=== PATIENT | male | born 1955 | race Caucasian/White ===

== ENCOUNTER 2018-07-28 11:42 | Observation (INO) | payer OTHER ==
[~2018-07-28] VITALS: Ht 172.7 cm; Wt 102.2 kg
[~2018-07-28 11:42] MED LIST: PANT-47 PO
[2018-07-28 12:18] LABS: BASOPHILS % (AUTO) 0.4 % (0-1); EOSINOPHILS # (AUTO) 0.2 X10'3 (0-0.9); EOSINOPHILS % (AUTO) 2.1 % (0-6); HEMATOCRIT 48.5 % (42.0-52.0); HEMOGLOBIN 16.5 g/dl (14.0-17.9); LYMPHOCYTES # (AUTO) 2.5 X10'3 (1.1-4.8); LYMPHOCYTES % (AUTO) 29.3 % (21-51); MEAN CORPUSCULAR HEMOGLOBIN 31.9 PG (27.0-31.0); MEAN CORPUSCULAR HGB CONC 34.2 g/dL (33.0-36.5); MEAN CORPUSCULAR VOLUME 93.3 FL (78-98); MEAN PLATELET VOLUME 8.1 FL (7.4-10.4); MONOCYTES # (AUTO) 0.6 X10'3 (0-0.9); MONOCYTES % (AUTO) 7.2 % (2-12); NEUTROPHILS # (AUTO) 5.2 X10'3 (1.8-7.7); PLATELET COUNT 229 X10'3 (140-440); RED CELL DISTRIBUTION WIDTH 13.1 % (11.5-14.5); WHITE BLOOD COUNT 8.6 X10'3 (4.5-11.0)
[2018-07-28 12:32] LABS: PARTIAL THROMBOPLASTIN TIME 25 SECONDS (22-32); PROTHROMBIN TIME 10.4 SECONDS (9.0-12.0)
[2018-07-28 12:34] LABS: ALANINE AMINOTRANSFERASE 33 U/L (12-78); ALBUMIN/GLOBULIN RATIO 1.1 (1.1-1.5); ALKALINE PHOSPHATASE 86 IU/L (46-116); ANION GAP 11 (8-16); ASPARTATE AMINO TRANSFERASE 17 U/L (10-37); BILIRUBIN,TOTAL 0.5 MG/DL (0.1-1.0); BLOOD UREA NITROGEN 14 MG/DL (7-18); BUN/CREATININE RATIO 16.1 (5.4-32.0); CHLORIDE 103 MMOL/L (99-107); CREATININE 0.87 MG/DL (0.60-1.10); GLUCOSE 186 MG/DL (70-104); POTASSIUM 3.9 MMOL/L (3.5-5.1); SODIUM 139 MMOL/L (135-145); TOTAL CARBON DIOXIDE 24.9 MMOL/L (24-32); TOTAL PROTEIN 7.5 G/DL (6.4-8.2); eGFR 90 ML/MIN
[2018-07-28] MEDS ORDERED: nitroGLYCERIN 0.4mg/hour patch TD ONE ×2 (12:40→13:00)
[2018-07-28] MEDS ORDERED: normal saline 1000ML IV soln IVB ONE (12:40)
[2018-07-28] MEDS ORDERED: aspirin 81mg tab.chew PO ONE (12:40)
[2018-07-28] MEDS ORDERED: ondansetron/PF 4mg/2ml inj IV PRN (13:00)
[2018-07-28] MEDS ORDERED: mag hydrox/Alum hydrox/simeth 30ml oral suspension PO PRN (13:00)
[2018-07-28] MEDS ORDERED: magnesium hydroxide 30ml (MOM) UD suspension PO PRN (13:00)
[2018-07-28] MEDS ORDERED: morphine 4 MG/ML inj SYRINge IV PRN ×2 (13:00)
[2018-07-28] MEDS ORDERED: NO HOME MEDS (13:25)
[2018-07-28] MEDS: normal saline 1000ml 1,000 ML IV SCH ×2 (13:43→22:56)
--- NOTE | 2018-07-28 13:52 | NUR ---
Patient resting comfortable in bed with warm blanket and lights dimmed. Patient denies any pain at this time. Patient awaiting in patient room assignment.
[2018-07-28 15:00] VITALS: BP 100/49
[2018-07-28] MEDS ORDERED: nitroGLYCERIN 0.4mg SUBLingual tab SL PRN (15:50)
[2018-07-28] MEDS ORDERED: metoprolol tartrate 1mg/ml inj IV PRN (15:50)
[2018-07-28] MEDS ORDERED: regadenoson 0.4mg/5ml syringe IV ONE (15:50)
[2018-07-28] MEDS ORDERED: aminophylline 250mg/10ml inj. IV PRN (15:50)
--- NOTE | 2018-07-28 16:11 | NUR ---
PAGER ID: [phone] MESSAGE: [phone]. Can I add a nicotine patch for this pt.? Orlin KEENE [phone]
[2018-07-28 16:55] LABS: HEMOGLOBIN A1C 7.3 % (4.5-6.2)
[2018-07-28] MEDS ORDERED: dextrose ORAL solution 15 GM/59 ML bottle PO PRN ×2 (17:05)
[2018-07-28] MEDS ORDERED: insulin Lispro (HumaLOG) vial - multi-dose SQ SCH (17:05)
[2018-07-28] MEDS ORDERED: glucagon, human recombinant 1mg kit SUBCUT PRN (17:05)
[2018-07-28] MEDS ORDERED: dextrose 50%-water 50ml dispensing syringe IV PRN ×2 (17:05)
[2018-07-28] MEDS: nicotine 21mg patch - 24 hr TD SCH (17:18)
[2018-07-28 18:00] VITALS: BP 106/52
--- NOTE | 2018-07-28 18:00 | NUR ---
Patient in room MED 314. I have received report from JASSI Ordaz and had the opportunity to ask questions and assume patient care.
--- NOTE | 2018-07-28 18:16 | NUR ---
Problems reprioritized. Patient report given, questions answered & plan of care reviewed with Marisabel KEENE.
[2018-07-28] MEDS: carVEDilol 3.125mg tablet PO SCH (19:56)
[2018-07-28] MEDS: heparin, porcine 5000 units/ml vial SQ SCH (19:57)
[2018-07-28] MEDS: acetaminophen 325mg tablet PO PRN (20:00)
[2018-07-28] MEDS: insulin glargine (Lantus) pen - multi-dose SQ SCH (21:00)
--- NOTE | 2018-07-28 21:22 | NUR ---
Patient was started on hyperglycemic protocol after it is noted that A1C is 7.3. Patient 1700 blood glucose is 224 and was covered for a correctional dose and nutritional dose of Humulog and given 8 units of Insulin at approximately 2000 hrs and by 2100 his blood glucose was at 72. This patient just prior to 2100 blood glucose check began to complain of nausea and a thickness or swelling in his neck. He also c/o lower back pain that radiated around to upper abdomen of the left side. No 578EKG changes noted, BP is a low at 104/46, but this is repeated after repositioning BP cuff and it read 105/57 (73). Patient was moved to a chair at bedside and within a few minutes reported that the symptoms above began to go away. Provided juice and will repeat accucheck within the next hour (0) and not administer the Lantus dose scheduled, continue to monitor patient. Discussed with Charge nurse and both of us in agreement to hold the Lantus this shift.
[2018-07-28 22:00] VITALS: BP 114/59
[2018-07-29] VITALS (14 sets, daily range): BP systolic 97–145; BP diastolic 49–88
[2018-07-29] MEDS: acetaminophen 325mg tablet PO PRN (02:15)
[2018-07-29 05:44] LABS: BASOPHILS % (AUTO) 0.2 % (0-1); EOSINOPHILS # (AUTO) 0.2 X10'3 (0-0.9); HEMATOCRIT 39.8 % (42.0-52.0); HEMOGLOBIN 13.9 g/dl (14.0-17.9); LYMPHOCYTES # (AUTO) 2.5 X10'3 (1.1-4.8); LYMPHOCYTES % (AUTO) 22.6 % (21-51); MEAN CORPUSCULAR HEMOGLOBIN 32.3 PG (27.0-31.0); MEAN CORPUSCULAR HGB CONC 34.9 g/dL (33.0-36.5); MEAN CORPUSCULAR VOLUME 92.6 FL (78-98); MEAN PLATELET VOLUME 8.2 FL (7.4-10.4); MONOCYTES # (AUTO) 0.8 X10'3 (0-0.9); MONOCYTES % (AUTO) 7.1 % (2-12); NEUTROPHILS # (AUTO) 7.6 X10'3 (1.8-7.7); NEUTROPHILS % (AUTO) 68.1 % (42-75); PLATELET COUNT 205 X10'3 (140-440); RED CELL DISTRIBUTION WIDTH 12.7 % (11.5-14.5); WHITE BLOOD COUNT 11.2 X10'3 (4.5-11.0)
[2018-07-29 05:50] LABS: ALBUMIN 3.2 G/DL (3.4-5.0); ANION GAP 8 (8-16); BLOOD UREA NITROGEN 15 MG/DL (7-18); BUN/CREATININE RATIO 16.5 (5.4-32.0); CALCIUM 8.3 MG/DL (8.5-10.1); CHLORIDE 105 MMOL/L (99-107); CREATININE 0.91 MG/DL (0.60-1.10); GLUCOSE 129 MG/DL (70-104); SODIUM 139 MMOL/L (135-145); eGFR 85 ML/MIN
--- NOTE | 2018-07-29 06:00 | NUR ---
Problems reprioritized. Patient report given, questions answered & plan of care reviewed with Art, RN.
[2018-07-29] MEDS: heparin, porcine 5000 units/ml vial SQ SCH ×2 (07:27→21:57)
[2018-07-29] MEDS: nicotine 21mg patch - 24 hr TD SCH (07:28)
[2018-07-29] MEDS: normal saline 1000ml 1,000 ML IV SCH ×2 (08:56→18:56)
[2018-07-29] MEDS ORDERED: aminophylline inj. 10 ML IV ONE (09:27)
[2018-07-29] MEDS ORDERED: regadenoson 0.4mg/5ml syringe IV ONE (09:27)
[2018-07-29] MEDS: carVEDilol 3.125mg tablet PO SCH (11:15)
[2018-07-29] MEDS: atorvastatin 20mg tablet PO SCH (11:15)
[2018-07-29] MEDS: aspirin 81mg tablet.DR PO SCH (11:15)
[2018-07-29 13:28] LABS: CHOL/HDL RATIO 5.1 (0.00-4.99); CHOLESTEROL 158 MG/DL (0-200); HDL CHOLESTEROL 31 MG/DL (35-60); LDL CHOLESTEROL 110 MG/DL (50-100); TRIGLYCERIDES 125 MG/DL (20-135)
--- NOTE | 2018-07-29 13:56 | NUR ---
Pt being prepped for heart cath. Consent will be obtained.
--- NOTE | 2018-07-29 14:38 | NUR ---
DM Consult: Pt A1C 7.3. Pt is newly diagnosed w/ DM. Met pt at bedside gave written and verbal DM education. Informed pt of DM education class and left RD contact info for further questions. At this time pt has no further questions. Will continue to monitor. Addendum: 07/29/18 at [address] Amended: Links added. Addendum: 07/29/18 at [address] I have reviewed and agree with note by Aircraft Pilot. Nany Montana RD
[2018-07-29] MEDS ORDERED: LIDOcaine 1% (10mg/ml)w/preservative injection 20ml MDV ONE (16:10)
[2018-07-29] MEDS ORDERED: iohexol 350MG/ML 100ml bottle IV ONE (16:10)
--- NOTE | 2018-07-29 16:18 | NUR ---
Pt to labor and employment paralegal
[2018-07-29] MEDS ORDERED: fentaNYL/PF 50MCG/1 ML 2ML syringe ONE (16:21)
[2018-07-29] MEDS ORDERED: midazolam 2 mg/2 ml injection ONE ×2 (16:21→16:26)
[2018-07-29] MEDS: insulin glargine (Lantus) pen - multi-dose SQ SCH (21:00)
[2018-07-29] MEDS: carvedilol 6.25mg tablet PO SCH (21:57)
[2018-07-29] MEDS ORDERED: HYDROcodone/acetaminophen 5mg/325mg tablet PO PRN (23:55)
[2018-07-29] MEDS ORDERED: acetaminophen 325mg tablet PO PRN (23:55)
[2018-07-29] MEDS ORDERED: proCHLORperazine 10 MG/2 ml inj IV PRN (23:55)
[2018-07-29] MEDS ORDERED: ondansetron/PF 4mg/2ml inj IV PRN (23:55)
[2018-07-29] MEDS ORDERED: HYDROcodone/acetaminophen 10/325mg tab PO PRN (23:55)
[2018-07-29] MEDS ORDERED: OXAZEpam 15mg capsule PO PRN (23:55)
[2018-07-29] MEDS ORDERED: normal saline 1000ml 1,000 ML IV SCH (23:55)
[2018-07-30 03:00] VITALS: BP 117/63
[2018-07-30 04:43] LABS: BASOPHILS % (AUTO) 0.2 % (0-1); EOSINOPHILS # (AUTO) 0.1 X10'3 (0-0.9); EOSINOPHILS % (AUTO) 1.4 % (0-6); HEMOGLOBIN 15.5 g/dl (14.0-17.9); LYMPHOCYTES # (AUTO) 2.2 X10'3 (1.1-4.8); LYMPHOCYTES % (AUTO) 24.3 % (21-51); MEAN CORPUSCULAR HEMOGLOBIN 31.9 PG (27.0-31.0); MEAN CORPUSCULAR HGB CONC 34.4 g/dL (33.0-36.5); MEAN CORPUSCULAR VOLUME 92.7 FL (78-98); MEAN PLATELET VOLUME 8.3 FL (7.4-10.4); MONOCYTES # (AUTO) 0.7 X10'3 (0-0.9); MONOCYTES % (AUTO) 7.7 % (2-12); NEUTROPHILS # (AUTO) 6.1 X10'3 (1.8-7.7); NEUTROPHILS % (AUTO) 66.4 % (42-75); PLATELET COUNT 209 X10'3 (140-440); RED BLOOD COUNT 4.86 X10'6 (4.70-6.10); RED CELL DISTRIBUTION WIDTH 12.9 % (11.5-14.5); WHITE BLOOD COUNT 9.1 X10'3 (4.5-11.0)
[2018-07-30 04:50] LABS: ALBUMIN 3.4 G/DL (3.4-5.0); ANION GAP 9 (8-16); BLOOD UREA NITROGEN 14 MG/DL (7-18); BUN/CREATININE RATIO 17.9 (5.4-32.0); CALCIUM 8.7 MG/DL (8.5-10.1); CHLORIDE 103 MMOL/L (99-107); CREATININE 0.78 MG/DL (0.60-1.10); GLUCOSE 130 MG/DL (70-104); POTASSIUM 4.1 MMOL/L (3.5-5.1); SODIUM 138 MMOL/L (135-145); TOTAL CARBON DIOXIDE 25.6 MMOL/L (24-32); eGFR > 90 ML/MIN
[2018-07-30] MEDS: normal saline 1000ml 1,000 ML IV SCH (04:56)
[2018-07-30 06:00] VITALS: BP 139/81
[2018-07-30] MEDS: atorvastatin 20mg tablet PO SCH (07:40)
[2018-07-30] MEDS: aspirin 81mg tablet.DR PO SCH (07:40)
[2018-07-30] MEDS: carvedilol 6.25mg tablet PO SCH (07:41)
[2018-07-30] MEDS: nicotine 21mg patch - 24 hr TD SCH (08:00)
[2018-07-30] MEDS ORDERED: ATOR20TA66 PO (12:59)
[2018-07-30] MEDS ORDERED: NITR0.4T51 SL (12:59)
[2018-07-30] MEDS ORDERED: ASPI-1071 PO (12:59)
[2018-07-30] MEDS ORDERED: LANC1KIT SQ (13:02)
[2018-07-30] MEDS ORDERED: [UNRECOGNIZED DRUG - CODE] SQ (13:12)
[2018-07-30] MEDS ORDERED: LISI2.5T2 PO (13:16)
[2018-07-30] MEDS ORDERED: METF500T PO (14:05)
[2018-07-30] MEDS ORDERED: NICO-687 TOP (14:05)
--- NOTE | 2018-07-30 15:30 | NUR ---
Patient has been discharged home at this time. All of patients medications and supply orders have been called in to [facility]. Patient has been given all discharge instructions and states understanding of need to quit smoking, how to check blood sugars and how to take all medications. All belongings have been sent home with patient and he states he is not missing any of his personal items. Paperwork completed and copies made. Patient understands his discharge instructions including need to follow up with primary care in one week and to follow up with MD Jocy RODRIGUEZ. Iv in left hand removed and ID bracelet cut and taken off.
== END 2018-07-30 16:10 | disposition home or self-care (01) ==
LOC: ER 11:43 → ED HOLD 12:56 → INTOOBSV 12:56 → MED 3N 14:42
PROVIDERS: ADMIT Family Medicine; ATTEND Family Medicine
DX: I25.10 Atherosclerotic heart disease of native coronary artery without angina pectoris (principal); F17.210 Nicotine dependence, cigarettes, uncomplicated; M19.90 Unspecified osteoarthritis, unspecified site; R42 Dizziness and giddiness
CPT/HCPCS: 36415; 71045; 78452; 80048; 80053; 80061; 82948; 83036; 84484; 85025; 85610; 85730; 87070; 93005; 93017; 93458; 96361; 96372; 96374; 99284; A6257; A9500; G0378; J0280; J1644; J2001; J2250; J2270; J3010; J7030; Q9967; 99152; 99285; C1760; C1769; J1815

== ENCOUNTER 2020-05-26 10:42 | Outpatient (CLI) | payer OTHER ==
[~2020-05-26 10:42] MED LIST changes: +ASPI-1071 PO; +ATOR20TA66 PO; +LANC1KIT SQ; +LISI2.5T2 PO; +METF500T PO; +NITR0.4T51 SL; -PANT-47 PO; +[UNRECOGNIZED DRUG - CODE] SQ
[2020-05-26] MEDS ORDERED: HYDR-3972 PO (11:27)
[2020-05-26 11:52] LABS: BASOPHILS # (AUTO) 0.1 X10'3 (0-0.2); BASOPHILS % (AUTO) 0.8 % (0-1); EOSINOPHILS # (AUTO) 0.1 X10'3 (0-0.9); EOSINOPHILS % (AUTO) 1.6 % (0-6); LYMPHOCYTES # (AUTO) 2.4 X10'3 (1.1-4.8); LYMPHOCYTES % (AUTO) 36.6 % (21-51); MEAN CORPUSCULAR HGB CONC 35.2 g/dL (33.0-36.5); MEAN CORPUSCULAR VOLUME 93.6 FL (78-98); MEAN PLATELET VOLUME 8.3 FL (7.4-10.4); MONOCYTES # (AUTO) 0.5 X10'3 (0-0.9); MONOCYTES % (AUTO) 7.3 % (2-12); NEUTROPHILS # (AUTO) 3.5 X10'3 (1.8-7.7); NEUTROPHILS % (AUTO) 53.7 % (42-75); PRE OP HEMATOCRIT 44.8 % (42.0-52.0); PRE OP HEMOGLOBIN 15.8 g/dL (14.0-17.9); PRE OP PLATELET COUNT 221 X10'3 (140-440); RED BLOOD COUNT 4.79 X10'6 (4.70-6.10); RED CELL DISTRIBUTION WIDTH 12.9 % (11.5-14.5)
[2020-05-26 12:03] LABS: ALBUMIN/GLOBULIN RATIO 1.2 (1.1-1.5); ALKALINE PHOSPHATASE 95 IU/L (46-116); BLOOD UREA NITROGEN 17 MG/DL (7-18); CALCIUM 8.7 MG/DL (8.5-10.1); CHLORIDE 106 MMOL/L (99-107); CREATININE 0.85 MG/DL (0.60-1.10); PRE OP ALT 31 U/L (30-65); PRE OP ANION GAP 12 (8-16); PRE OP AST 16 U/L (10-37); PRE OP BILIRUB, TOTAL 0.4 MG/DL (0.0-1.0); PRE OP GLUCOSE 151 MG/DL (70-104); PRE OP POTASSIUM 3.8 MMOL/L (3.4-5.1); PRE OP SODIUM 141 MMOL/L (135-145); TOTAL CARBON DIOXIDE 23.5 MMOL/L (24-32); TOTAL PROTEIN 7.4 G/DL (6.4-8.2); eGFR > 90 ML/MIN
[2020-05-26 13:49] LABS: HEMOGLOBIN A1C 6.7 % (4.5-6.2)
[2020-06-30] MEDS ORDERED: ASPI-1 PO (08:42)
== END 2020-05-26 23:59 | disposition home or self-care (01) ==
LOC: PRE-OP 10:42 → EDSTATUS 06-01 12:15
PROVIDERS: ATTEND Orthopaedic Surgery
DX: Z01.812 Encounter for preprocedural laboratory examination (principal); Z20.828 Contact with and (suspected) exposure to other viral communicable diseases; M17.11 Unilateral primary osteoarthritis, right knee; Z96.651 Presence of right artificial knee joint
CPT/HCPCS: 36415; 71046; 80053; 83036; 85025; 87081; 87635; 93005

== ENCOUNTER 2021-01-04 09:23 | Day surgery (SDC) | payer OTHER ==
[2020-12-26 15:14] LABS: BASOPHILS # (AUTO) 0.1 X10'3 (0-0.2); BASOPHILS % (AUTO) 1.3 % (0-1); EOSINOPHILS # (AUTO) 0.1 X10'3 (0-0.9); EOSINOPHILS % (AUTO) 1.6 % (0-6); LYMPHOCYTES # (AUTO) 3.1 X10'3 (1.1-4.8); LYMPHOCYTES % (AUTO) 35.4 % (21-51); MEAN CORPUSCULAR VOLUME 91.4 FL (78-98); MEAN PLATELET VOLUME 8.8 FL (7.4-10.4); MONOCYTES # (AUTO) 0.7 X10'3 (0-0.9); MONOCYTES % (AUTO) 8.2 % (2-12); NEUTROPHILS # (AUTO) 4.7 X10'3 (1.8-7.7); NEUTROPHILS % (AUTO) 53.5 % (42-75); PRE OP HEMATOCRIT 45.4 % (42.0-52.0); PRE OP HEMOGLOBIN 15.9 g/dL (14.0-17.9); PRE OP PLATELET COUNT 237 X10'3 (140-440); RED BLOOD COUNT 4.96 X10'6 (4.70-6.10); RED CELL DISTRIBUTION WIDTH 13.4 % (11.5-14.5)
[2020-12-26 15:33] LABS: ALBUMIN 2.9 G/DL (3.4-5.0); ALBUMIN/GLOBULIN RATIO 0.7 (1.1-1.5); ALKALINE PHOSPHATASE 108 IU/L (46-116); BLOOD UREA NITROGEN 18 MG/DL (7-18); BUN/CREATININE RATIO 19.8 (5.4-32.0); CALCIUM 8.5 MG/DL (8.5-10.1); CHLORIDE 106 MMOL/L (99-107); CREATININE 0.91 MG/DL (0.60-1.10); PRE OP ALT 25 U/L (30-65); PRE OP ANION GAP 12 (8-16); PRE OP AST 10 U/L (10-37); PRE OP BILIRUB, TOTAL 0.6 MG/DL (0.0-1.0); PRE OP GLUCOSE 131 MG/DL (70-104); PRE OP POTASSIUM 3.7 MMOL/L (3.4-5.1); PRE OP SODIUM 141 MMOL/L (135-145); TOTAL CARBON DIOXIDE 23.4 MMOL/L (24-32); TOTAL PROTEIN 7.3 G/DL (6.4-8.2); eGFR 84 ML/MIN
[2021-01-04] VITALS (21 sets, daily range): BP systolic 120–172; BP diastolic 68–103
[~2021-01-04] VITALS: Ht 172.7 cm; Wt 98.2 kg
[~2021-01-04 09:23] MED LIST changes: -ASPI-1071 PO; -ATOR20TA66 PO; -LANC1KIT SQ; -LISI2.5T2 PO; -METF500T PO; -NITR0.4T51 SL; +TRAM50TA2 PO; -[UNRECOGNIZED DRUG - CODE] SQ; +cefazolin/dext.iso 2gm/100ml IV ONE; +famotidine 20mg tablet PO ONE; +ringers solution, lacted 1,000 ML IV SCH; +tranexamic acid 1gm/0.7% sal. 100 ML IV ONE; +vancomycin 1,500 MG in NS 300ml IV soln IV ONE
[2021-01-04] MEDS ORDERED: ipratropium/albuterol 3ml nebule NEB PRN (10:25)
[2021-01-04] MEDS ORDERED: ROPIVAcaine 0.2%/PF PUMP/bolus 545 ML ADDCANAL SCH (11:30)
[2021-01-04] MEDS ORDERED: ondansetron/PF 4mg/2ml inj IV PRN ×2 (11:30→13:45)
[2021-01-04] MEDS ORDERED: meperidine/PF 25mg/ml syringe IV PRN ×3 (11:30)
[2021-01-04] MEDS ORDERED: morphine 2 MG/ML inj. syringe IV PRN (11:30)
[2021-01-04] MEDS ORDERED: ROPIVAcaine 0.2% (10 MG/5 ML) BOLUS INJECTION ADDCANAL PRN (11:30)
[2021-01-04] MEDS ORDERED: ringers solution, lacted 1,000 ML IV SCH (11:30)
[2021-01-04] MEDS ORDERED: proCHLORperazine 10 MG/2 ml inj IV PRN (11:30)
[2021-01-04] MEDS ORDERED: morphine 4 MG/ML inj SYRINge IV PRN (11:30)
[2021-01-04] MEDS ORDERED: fentaNYL/PF 50MCG/1 ML 2ML syringe ONE (11:39)
[2021-01-04] MEDS ORDERED: MIDAZolam 1 MG/ML 5ML VIAL ONE (11:40)
[2021-01-04] MEDS ORDERED: ROPIVAcaine 0.5% (5mg/ml) 30ml vial ONE ×2 (12:58→13:09)
[2021-01-04] MEDS ORDERED: vancomycin 1,000mg inj ONE (13:02)
[2021-01-04] MEDS ORDERED: propofol inj 20 ML IV ONE ×2 (13:08→13:09)
[2021-01-04] MEDS ORDERED: bisacodyl 10mg suppository rectal RC PRN (13:45)
[2021-01-04] MEDS ORDERED: magnesium hydroxide 30ml (MOM) UD suspension PO PRN (13:45)
[2021-01-04] MEDS ORDERED: acetaminophen 325mg tablet PO PRN (13:45)
[2021-01-04] MEDS ORDERED: HYDROmorphone inj. 0.5 MG/0.5 ML DISP.SYRIN IV PRN (13:45)
[2021-01-04] MEDS ORDERED: diphenhydrAMINE 25mg capsule PO PRN ×2 (13:45)
--- NOTE | 2021-01-04 13:58 | NUR ---
Received from OR via , accompanied by Anesthesiologist DR YADAV and report given by Anesthesiolgist. PT PRESENTS WITH 18G PIV LEFT HAND, LEFT LEF DRERSSSING DRY AND INTACT WITH POWDER PACK, VSS. Addendum: 01/04/21 at 1409 by Livier Dave RN, RN Amended: Links added.
[2021-01-04] MEDS: acetaminophen 325mg tablet PO SCH ×2 (14:00→20:42)
--- NOTE | 2021-01-04 15:10 | NUR ---
received report from sergio carpenter in recovery
--- NOTE | 2021-01-04 15:18 | NUR ---
PATIENT HAS MET ALL CRITERIA FOR TRANSFER TO THE ORTHO FLOOR. VSS. DRESSINGS INTACT. BED LOW, CALL LIGHT PRESENT AND 2 RAILS UP. JASSI ALBERT PRESENT TO ACCEPT CARE OF PATIENT AND REPORT HAS BEEN CALLED. ALL QUESTIONS ANSWERED TO ACCEPTING RN. Addendum: 01/04/21 at 1534 by Livier Parikh - JASSI KEENE Amended: Links added.
[2021-01-04] MEDS ORDERED: traMADol 50MG tablet PO PRN (15:20)
[2021-01-04] MEDS ORDERED: TRANEXAMIC ACID IV ONE (17:00)
[2021-01-04] MEDS ORDERED: NORMAL SALINE IV ONE (17:00)
[2021-01-04] MEDS: HYDROmorphone 1 mg/ml syringe IV PRN ×2 (17:45→22:53)
--- NOTE | 2021-01-04 18:15 | NUR ---
Assumed care report from Marcia KEENE.
[2021-01-04] MEDS ORDERED: vancomycin/NS 1 GM ADD-VANTAGE 250 ML IV SCH (20:00)
[2021-01-04] MEDS: gabapentin 300mg capsule PO SCH (20:41)
[2021-01-04] MEDS: oxyCODONE IR 5mg (immed. release) tablet PO PRN (20:42)
[2021-01-04] MEDS: potassium cl 20mEq in 1/2 NS 1,000 ML IV SCH ×2 (20:45→21:45)
[2021-01-04] MEDS ORDERED: sennosides 8.6mg tablet PO SCH (21:00)
[2021-01-05] MEDS: oxyCODONE IR 5mg (immed. release) tablet PO PRN ×3 (01:27→12:20)
[2021-01-05] MEDS: acetaminophen 325mg tablet PO SCH ×2 (01:31→07:53)
[2021-01-05 02:05] VITALS: BP 142/85
[2021-01-05] MEDS: potassium cl 20mEq in 1/2 NS 1,000 ML IV SCH (05:45)
[2021-01-05 06:00] VITALS: BP 136/79
--- NOTE | 2021-01-05 06:01 | NUR ---
Report given to Rony KEENE.
[2021-01-05] MEDS: gabapentin 300mg capsule PO SCH ×2 (07:53→12:22)
[2021-01-05] MEDS ORDERED: enoxaparin 40mg/0.4ml syringe SQ SCH (08:00)
[2021-01-05 10:06] VITALS: BP 100/81
--- NOTE | 2021-01-05 16:02 | NUR ---
Joint surgery Consult: Pt s/p L hip surgery this admit. Pt seen by XAVI for written/verbal high protein ed w/ RD contact information provided. XAVI encouraged pt to contact dietitian's office if further questions/concerns. Addendum: 01/05/21 at [address] Amended: Links added.
[2021-01-05] MEDS ORDERED: celeCOXIB 100mg capsule PO SCH (20:00)
[2021-01-06] MEDS ORDERED: acetaminophen 325mg tablet PO PRN (13:45)
== END 2021-01-05 13:45 | disposition home or self-care (01) ==
LOC: PAS 09:23 → UNDOADMIN 13:41 → ORTHO 4S 13:41 → PAS 01-05 13:45
PROVIDERS: ATTEND Orthopaedic Surgery
DX: M25.361 Other instability, right knee (principal); M17.11 Unilateral primary osteoarthritis, right knee; Z20.822 Contact with and (suspected) exposure to COVID-19; G89.18 Other acute postprocedural pain; F17.210 Nicotine dependence, cigarettes, uncomplicated; J44.9 Chronic obstructive pulmonary disease, unspecified; H40.9 Unspecified glaucoma; Z88.0 Allergy status to penicillin; Z88.1 Allergy status to other antibiotic agents; Z79.899 Other long term (current) drug therapy; Z98.890 Other specified postprocedural states; Z72.89 Other problems related to lifestyle
CPT/HCPCS: 27486; 36415; 64448; 76937; 80053; 82948; 85025; 87070; 87075; 87081; 93005; 94640; 94760; 97110; 97116; 97162; 97530; C1758; C1776; J1170; J2250; J2405; J2704; J2795; J3010; J3370; J7040; U0003; U0005; A4215; A7000; C9520; G0378; J1650; J3480; J7120

== ENCOUNTER 2021-03-05 12:58 | Inpatient (IN) | payer OTHER ==
[~2021-03-05] VITALS: Ht 172.7 cm; Wt 93.9 kg
--- NOTE | 2021-03-05 13:50 | NUR ---
Patient is cooperative and in waiting room. No beds available. ACS protocol ordered. EKG is done. Patient is pain free now. W/D, good color. No subjective SOB or accessary muscle use.
[2021-03-05 14:39] LABS: BASOPHILS # (AUTO) 0.1 X10'3 (0-0.2); BASOPHILS % (AUTO) 0.6 % (0-1); EOSINOPHILS # (AUTO) 0.1 X10'3 (0-0.9); EOSINOPHILS % (AUTO) 0.9 % (0-6); HEMATOCRIT 44.5 % (42.0-52.0); HEMOGLOBIN 15.4 g/dl (14.0-17.9); LYMPHOCYTES # (AUTO) 1.6 X10'3 (1.1-4.8); LYMPHOCYTES % (AUTO) 16.7 % (21-51); MEAN CORPUSCULAR HEMOGLOBIN 32.1 PG (27.0-31.0); MEAN CORPUSCULAR HGB CONC 34.6 g/dL (33.0-36.5); MEAN CORPUSCULAR VOLUME 92.6 FL (78-98); MEAN PLATELET VOLUME 8.6 FL (7.4-10.4); MONOCYTES # (AUTO) 0.6 X10'3 (0-0.9); NEUTROPHILS # (AUTO) 7.1 X10'3 (1.8-7.7); NEUTROPHILS % (AUTO) 75.8 % (42-75); PLATELET COUNT 258 X10'3 (140-440); RED BLOOD COUNT 4.81 X10'6 (4.70-6.10); RED CELL DISTRIBUTION WIDTH 13.6 % (11.5-14.5); WHITE BLOOD COUNT 9.3 X10'3 (4.5-11.0)
[2021-03-05 14:57] LABS: ALANINE AMINOTRANSFERASE 22 U/L (12-78); ALBUMIN/GLOBULIN RATIO 1.2 (1.1-1.5); ALKALINE PHOSPHATASE 115 IU/L (46-116); ANION GAP 9 (8-16); ASPARTATE AMINO TRANSFERASE 9 U/L (10-37); BILIRUBIN,TOTAL 0.8 MG/DL (0.1-1.0); BLOOD UREA NITROGEN 15 MG/DL (7-18); BUN/CREATININE RATIO 15.8 (5.4-32.0); CALCIUM 8.9 MG/DL (8.5-10.1); CHLORIDE 105 MMOL/L (99-107); CREATININE 0.95 MG/DL (0.60-1.10); GLUCOSE 176 MG/DL (70-104); POTASSIUM 4.2 MMOL/L (3.5-5.1); SODIUM 140 MMOL/L (135-145); TOTAL CARBON DIOXIDE 25.6 MMOL/L (24-32); TOTAL PROTEIN 7.4 G/DL (6.4-8.2); eGFR 80 ML/MIN
[2021-03-05] MEDS ORDERED: DOXYCYCLINE 100MG CAPSULE PO STA (16:07)
[2021-03-05] MEDS ORDERED: iohexol 350MG/ML 100ml bottle IV ONE (16:45)
--- NOTE | 2021-03-05 19:45 | NUR ---
Pt SOB while sitting up on bed O2 variable with a frequent low of 90%-91%. O2 administered by NC at 1 L. Pt O2 increasing to 94%-95%
[2021-03-05] MEDS ORDERED: levoFLOXACIN-Levaquin 750MG/D5 150 ML IV ONE (20:19)
[2021-03-05] MEDS ORDERED: temazepam 15mg capsule PO PRN (21:00)
[2021-03-05] MEDS ORDERED: magnesium 4gm in 100ml NS 100 ML IV PRN (21:15)
[2021-03-05] MEDS ORDERED: PERFLUTREN PROTEIN-A MICROSPHR (Optison) 0.22 MG/ML 3ML VIAL IV PRN (21:15)
[2021-03-05] MEDS ORDERED: magnesium 2GM in 50ml NS 50 ML IV PRN (21:15)
[2021-03-05] MEDS ORDERED: morphine 2 MG/ML inj. syringe IV PRN (21:15)
[2021-03-05] MEDS ORDERED: potassium Cl 40MEQ/1/2NS 520ml 520 ML IV PRN ×2 (21:15)
[2021-03-05] MEDS ORDERED: acetaminophen 325mg tablet PO PRN (21:15)
[2021-03-05] MEDS ORDERED: ipratropium/albuterol 3ml nebule NEB PRN ×2 (21:15)
[2021-03-05] MEDS ORDERED: ondansetron/PF 4mg/2ml inj IV PRN (21:15)
[2021-03-05] MEDS ORDERED: potassium Cl 20 mEq SR tablet PO PRN ×2 (21:15)
[2021-03-05] MEDS ORDERED: magnesium Cl slow-release 64mg tablet PO PRN (21:15)
[2021-03-05] MEDS ORDERED: regadenoson 0.4mg/5ml syringe IV PRN (21:20)
[2021-03-05] MEDS ORDERED: aminophylline 250mg/10ml inj. IV PRN (21:20)
[2021-03-05] MEDS ORDERED: nitroGLYCERIN 0.4mg SUBLingual tab SL PRN (21:20)
[2021-03-05] MEDS ORDERED: furosemide 10 MG/1 ML 10ml inj IV ONE (21:20)
[2021-03-05] MEDS ORDERED: metoprolol tartrate 1mg/ml inj IV PRN (21:20)
[2021-03-05] MEDS ORDERED: IBUP-1986 PO (22:30)
[2021-03-06] VITALS (8 sets, daily range): BP systolic 124–147; BP diastolic 61–85
[2021-03-06] MEDS ORDERED: furosemide 10 MG/1 ML 10ml inj IV ONE (07:10)
[2021-03-06] MEDS ORDERED: K and/or MAG REPLACEMENT MC SCH (08:00)
[2021-03-06] MEDS ORDERED: methylPREDNISolone sod succ/PF 40mg inj. IV SCH (08:00)
[2021-03-06] MEDS ORDERED: enoxaparin 40mg/0.4ml syringe SUBCUT SCH (08:00)
--- NOTE | 2021-03-06 09:15 | NUR ---
PT TRANSPORTED TO STRESS TEST VIA WHEELCHAIR
[2021-03-06 11:05] LABS: BASOPHILS # (AUTO) 0.1 X10'3 (0-0.2); BASOPHILS % (AUTO) 0.8 % (0-1); EOSINOPHILS # (AUTO) 0.1 X10'3 (0-0.9); EOSINOPHILS % (AUTO) 1.1 % (0-6); HEMATOCRIT 44.9 % (42.0-52.0); HEMOGLOBIN 15.5 g/dl (14.0-17.9); LYMPHOCYTES # (AUTO) 1.5 X10'3 (1.1-4.8); LYMPHOCYTES % (AUTO) 17.3 % (21-51); MEAN CORPUSCULAR HEMOGLOBIN 31.9 PG (27.0-31.0); MEAN CORPUSCULAR HGB CONC 34.6 g/dL (33.0-36.5); MEAN CORPUSCULAR VOLUME 92.1 FL (78-98); MEAN PLATELET VOLUME 8.3 FL (7.4-10.4); MONOCYTES # (AUTO) 0.8 X10'3 (0-0.9); MONOCYTES % (AUTO) 8.6 % (2-12); NEUTROPHILS # (AUTO) 6.4 X10'3 (1.8-7.7); NEUTROPHILS % (AUTO) 72.2 % (42-75); PLATELET COUNT 235 X10'3 (140-440); RED BLOOD COUNT 4.87 X10'6 (4.70-6.10); RED CELL DISTRIBUTION WIDTH 13.8 % (11.5-14.5); WHITE BLOOD COUNT 8.9 X10'3 (4.5-11.0)
[2021-03-06 11:23] LABS: ANION GAP 13 (8-16); BLOOD UREA NITROGEN 16 MG/DL (7-18); BUN/CREATININE RATIO 18.6 (5.4-32.0); CALCIUM 9.1 MG/DL (8.5-10.1); CHLORIDE 103 MMOL/L (99-107); CHOL/HDL RATIO 6.3 (0.00-4.99); CHOLESTEROL 209 MG/DL (0-200); CREATININE 0.86 MG/DL (0.60-1.10); GLUCOSE 151 MG/DL (70-104); HDL CHOLESTEROL 33 MG/DL (35-60); LDL CHOLESTEROL 147 MG/DL (50-100); MAGNESIUM 2.2 MG/DL (1.5-2.4); SODIUM 141 MMOL/L (135-145); TOTAL CARBON DIOXIDE 24.9 MMOL/L (24-32); TRIGLYCERIDES 89 MG/DL (20-135); eGFR 90 ML/MIN
[2021-03-06] MEDS ORDERED: ALBU6.7H9 INH (14:19)
[2021-03-06] MEDS ORDERED: NITR0.4T51 SL (14:19)
[2021-03-06] MEDS ORDERED: PRED10TA23 PO (14:20)
== END 2021-03-06 16:36 | disposition home or self-care (01) | DRG 302 ==
LOC: ER 12:59 → ED HOLD 21:17
PROVIDERS: ADMIT Internal Medicine; ATTEND Internal Medicine
PROC: B32T1ZZ Computerized Tomography (CT Scan) of Left Pulmonary Artery using Low Osmolar Contrast (ICD-10-PCS; 2021-03-05)
PROC: B3201ZZ Computerized Tomography (CT Scan) of Thoracic Aorta using Low Osmolar Contrast (ICD-10-PCS; 2021-03-05)
PROC: B32S1ZZ Computerized Tomography (CT Scan) of Right Pulmonary Artery using Low Osmolar Contrast (ICD-10-PCS; 2021-03-05)
PROC: 4A02XM4 Measurement of Cardiac Total Activity, External Approach (ICD-10-PCS; principal; 2021-03-06)
PROC: 3E073KZ Introduction of Other Diagnostic Substance into Coronary Artery, Percutaneous Approach (ICD-10-PCS; 2021-03-06)
DX: I25.110 Atherosclerotic heart disease of native coronary artery with unstable angina pectoris (principal); I50.33 Acute on chronic diastolic (congestive) heart failure; Z20.822 Contact with and (suspected) exposure to COVID-19; F17.210 Nicotine dependence, cigarettes, uncomplicated; Z96.651 Presence of right artificial knee joint; Z82.49 Family history of ischemic heart disease and other diseases of the circulatory system; Z88.0 Allergy status to penicillin; Z71.6 Tobacco abuse counseling
CPT/HCPCS: 36415; 71045; 71275; 78452; 80048; 80053; 80061; 83605; 83735; 83880; 84484; 85025; 87081; 87635; 93005; 93017; 93306; 94760; 96365; 99285; A9500; C9803; G0378; J1650; J1940; J1956; J2785; J2920; Q9967